=== PATIENT | male | born 1965 | race Caucasian/White ===

== ENCOUNTER 2017-03-28 16:05 | Emergency (ER) | payer OTHER ==
[~2017-03-28] VITALS: Ht 152.4 cm; Wt 88.9 kg
[2017-03-28] MEDS ORDERED: GABA300C10 PO (18:42)
[2017-03-28] MEDS ORDERED: DULO20CA45 PO (18:42)
[2017-03-28 18:53] VITALS: BP 142/89
== END 2017-03-28 18:55 | disposition home or self-care (01) ==
LOC: ED 18:33
DX: S02.631A Fracture of coronoid process of right mandible, initial encounter for closed fracture (principal); R42 Dizziness and giddiness; W51.XXXA Accidental striking against or bumped into by another person, initial encounter; Y93.66 Activity, soccer; Y99.8 Other external cause status; Y92.322 Soccer field as the place of occurrence of the external cause
CPT/HCPCS: 70100; 70450; 70486; 99284